=== PATIENT | female | born 1960 | race Caucasian/White ===

== ENCOUNTER → 2017-11-28 | Outpatient (CLI) | payer MEDICARE, MEDICAID | END | disposition home or self-care (01) | LOC: CVU 14:19 | PROVIDERS: ATTEND Nurse Practitioner | DX: I35.0 Nonrheumatic aortic (valve) stenosis (principal); I07.1 Rheumatic tricuspid insufficiency; I10 Essential (primary) hypertension; J44.9 Chronic obstructive pulmonary disease, unspecified; Z99.81 Dependence on supplemental oxygen; Z87.891 Personal history of nicotine dependence | CPT/HCPCS: 93306 ==

== ENCOUNTER 2020-10-21 06:54 | Emergency (ER) | payer MEDICARE, MEDICAID ==
[~2020-10-21] VITALS: Ht 160 cm; Wt 51.7 kg
--- NOTE | 2020-10-21 07:00 | NUR ---
Pt ambulatory with steady gait to room from triage
[2020-10-21] MEDS ORDERED: PLEASE ENTER ALLERGIES MC SCH (07:30)
[2020-10-21] MEDS ORDERED: LORazepam 2 MG/ML, 1ML IVPush ONE (07:30)
[2020-10-21] MEDS ORDERED: SODIUM CHLORIDE 0.9% 1,000ML IVBOLUS ONE (07:30)
[2020-10-21] MEDS ORDERED: ALBUTEROL/IPRATROPIUM 2.5MG/0.5MG, 3 ML NPPB ONE (07:30)
[2020-10-21] MEDS ORDERED: SODIUM CHLORIDE FLUSH 10ML SYR IVF ONE (07:30)
[2020-10-21] MEDS ORDERED: LORazepam 2 MG/ML, 1ML ONE (07:33)
[2020-10-21 07:44] LABS: BASOPHILS % (AUTO) 0 % (0-1); EOSINOPHILS % (AUTO) 0 % (1-7); LYMPHOCYTES % (AUTO) 8 % (22-44); MEAN CORPUSCULAR HGB CONC 32.8 g/dL (32.4-35.8); MEAN PLATELET VOLUME 8.8 fL (7.4-10.4); MONOCYTES % (AUTO) 4 % (2-9); NEUTROPHILS % (AUTO) 87 % (42-75); PLATELET COUNT 282 x10^3/uL (130-400); RED CELL DISTRIBUTION WIDTH 14.4 % (9.6-15.2)
[2020-10-21 07:45] LABS: MD NO
--- NOTE | 2020-10-21 07:47 | NUR ---
PRECEPTOR RN NOTE: PT ARRIVES VIA AMBULANCE, REPORT TAKEN FROM EMS. PT PRESENTS TO ED WITH C/O SOB ONSET LAST NIGHT AFTER METH USE. PT HAS HX COPD WITH BASELINE OXYGEN USE AT 3-4L/MIN. PT HAS OCCAISIONAL COUGH, STATES THIS IS BASELINE, DENIES FEVER, DENIES INFECTIOUS CONTACTS/COVID EXPOSURE. PT REPORTS OCCIAIONAL STERNAL CHEST PAIN INTERMITTENTLY X 2 WEEKS, DENIES AT THIS TIME. PT IS A&O, RESPS EVEN AND MILDLY LABORED. NO RETRACTIONS NOTED. PT ABLE TO SPEAK IN FULL SENTENCES WITHOUT DIFFICULTY. ALL MONITORS IN PLACE, PT IS SINUS TACH RATE 110-120S WITH NO ECTOPY. DUONEB AND ALBUTEROL ADMIN PRIOR TO ARRIVAL BY EMS. PT SEEN AND EXAMINED BY EDMD, PER RN TO HOLD NEB TX AT THIS TIME D/T TACHCARDIA. PT MEDICATED PER EMAR, TOLERATED WELL. BED LOCKED, IN LOWEST POSITION, CALL LIGHT IN REACH. AWAITING CXR AND LAB RESULTS AT THIS TIME.
--- NOTE | 2020-10-21 07:50 | NUR ---
late entry: report given to JANY Burns who is assuming care.
[2020-10-21 07:54] LABS: ALBUMIN 3.6 g/dL (3.4-5.0); ANION GAP 7 mmol/L (5-15); CALCIUM 9.2 mg/dL (8.5-10.1); CHLORIDE 101 mmol/L (98-107); CREATININE 0.63 mg/dL (0.55-1.02)
[2020-10-21 07:58] LABS: TROPONIN I < 0.015 ng/mL (0.000-0.045)
[2020-10-21 08:35] VITALS: BP 95/57
--- NOTE | 2020-10-21 08:55 | NUR ---
PATIENT RESTING IN GURNEY, EYES CLOSED, RESP EVEN AND UNLABORED, VSS, CALL LIGHT WITHIN REACH. WAITING FOR DISCHARGE PAPERWORK.
--- NOTE | 2020-10-21 09:32 | NUR ---
Patient given discharge instructions and prescripton and they have confirmed that they understand the instructions. Patient calling [facility] for ride home. Patient stable, connected to her home O2 at 3 LPM NC.
== END 2020-10-21 09:33 | disposition home or self-care (01) ==
LOC: ED 09:27
DX: J96.11 Chronic respiratory failure with hypoxia (principal); J44.1 Chronic obstructive pulmonary disease with (acute) exacerbation; F15.10 Other stimulant abuse, uncomplicated; R00.0 Tachycardia, unspecified
CPT/HCPCS: 36415; 71045; 80048; 82040; 84484; 85025; 93005; 96361; 96374; 99285; J2060; J7030; J7512

== ENCOUNTER 2020-10-23 16:26 | Emergency (ER) | payer MEDICARE, MEDICAID ==
[~2020-10-23] VITALS: Ht 160 cm; Wt 53.3 kg
[2020-10-23 17:43] VITALS: BP 138/82
== END 2020-10-23 18:38 | disposition home or self-care (01) ==
LOC: ED 18:05
DX: J44.1 Chronic obstructive pulmonary disease with (acute) exacerbation (principal); F15.10 Other stimulant abuse, uncomplicated; R00.0 Tachycardia, unspecified; Z72.9 Problem related to lifestyle, unspecified
CPT/HCPCS: 93005; 99283

== ENCOUNTER 2020-12-08 07:57 | Emergency (ER) | payer MEDICARE, MEDICAID ==
[~2020-12-08] VITALS: Ht 160 cm; Wt 55.0 kg
--- NOTE | 2020-12-08 08:19 | NUR ---
troy, report taken from ems. pt arrives with c/o sob onset last night, room air sat 76% bell captain per ems. albuterol given bell captain, fsbs 156 bell captain. pt states she smoked meth last night. pt is a&o, resps even and unlabored, able to speak in full sentences without difficulty. pt wears oxygen at 2L/min at baseline, arrives with oxygen at 5L/min. ekg taken on arrival by edt. pt denies chest pain. all monitors in place. warm blanket provided. pt seen and examined by edpa, awaiting cxr and repeat neb tx.
[2020-12-08] MEDS ORDERED: DEXAMETHASONE 4 MG TABLET PO ONE (08:30)
[2020-12-08] MEDS ORDERED: ALBUTEROL SULFATE 2.5 MG/3 ML NPPB ONE (08:30)
[2020-12-08] MEDS ORDERED: DEXAMETHASONE 4 MG TABLET ONE (08:59)
[2020-12-08] MEDS ORDERED: ALBUTEROL SULFATE 2.5 MG/3 ML ONE (08:59)
--- NOTE | 2020-12-08 09:10 | NUR ---
pt medicated per emar, tolerated well. neb tx in prog.
[2020-12-08 10:10] VITALS: BP 101/62
== END 2020-12-08 10:15 | disposition home or self-care (01) ==
LOC: ED 08:05
DX: J44.1 Chronic obstructive pulmonary disease with (acute) exacerbation (principal); F15.10 Other stimulant abuse, uncomplicated; R06.02 Shortness of breath; R00.0 Tachycardia, unspecified; Z87.891 Personal history of nicotine dependence
CPT/HCPCS: 71045; 93005; 94640; 99283; J7613

== ENCOUNTER 2020-12-13 22:15 | Emergency (ER) | payer MEDICARE, MEDICAID ==
[~2020-12-13] VITALS: Ht 160 cm; Wt 50.0 kg
--- NOTE | 2020-12-13 23:03 | NUR ---
pt brought into ER via ambulance for COPD exacerbation, pt states she has a history of COPD and emphysema, pt also states she smoked some meth tonight, pt usually on 4-6 lpm at home, pt currently on 4 lpm with O2 saturation of 98%, all needs in reach, ekg monitor on, O2 sensor on as well, NAD
[2020-12-14 00:52] VITALS: BP 116/78
== END 2020-12-14 00:58 | disposition home or self-care (01) ==
LOC: ED 22:51
DX: F15.10 Other stimulant abuse, uncomplicated (principal); F41.9 Anxiety disorder, unspecified; F17.200 Nicotine dependence, unspecified, uncomplicated; J43.9 Emphysema, unspecified
CPT/HCPCS: 93005; 99283

== ENCOUNTER 2021-02-19 06:19 | Inpatient (IN) | payer MEDICARE, MEDICAID ==
[~2021-02-19] VITALS: Ht 160 cm; Wt 52.1 kg
[2021-02-19 07:36] LABS: BASOPHILS % (AUTO) 0 % (0-1); EOSINOPHILS % (AUTO) 0 % (1-7); LYMPHOCYTES % (AUTO) 7 % (22-44); MEAN CORPUSCULAR HEMOGLOBIN 28.2 pg (27.0-34.8); MEAN CORPUSCULAR HGB CONC 32.7 g/dL (32.4-35.8); MEAN PLATELET VOLUME 8.5 fL (7.4-10.4); MONOCYTES % (AUTO) 9 % (2-9); NEUTROPHILS % (AUTO) 84 % (42-75); PLATELET COUNT 266 x10^3/uL (130-400); RED BLOOD COUNT 3.93 x10^6/uL (3.82-5.3); RED CELL DISTRIBUTION WIDTH 13.7 % (9.6-15.2)
--- NOTE | 2021-02-19 07:36 | NUR ---
[employer] [employer]: PT TO ROOM FROM LOBBY VIA WHEELCHAIR
[2021-02-19 07:45] LABS: ALANINE AMINOTRANSFERASE 15 U/L (12-78); ALBUMIN 3.7 g/dL (3.4-5.0); ANION GAP 7 mmol/L (5-15); CALCIUM 9.6 mg/dL (8.5-10.1); CHLORIDE 98 mmol/L (98-107); CREATININE 0.77 mg/dL (0.55-1.02)
[2021-02-19 07:47] LABS: ALKALINE PHOSPHATASE 108 U/L (45-117); BILIRUBIN,TOTAL 0.6 mg/dL (0.2-1.0); TOTAL PROTEIN 8.3 g/dL (6.4-8.2)
[2021-02-19] MEDS ORDERED: ALBUTEROL/IPRATROPIUM 2.5MG/0.5MG, 3 ML ONE (08:18)
[2021-02-19] MEDS ORDERED: SODIUM CHLORIDE FLUSH 10ML SYR IVF ONE (08:30)
[2021-02-19] MEDS ORDERED: ALBUTEROL/IPRATROPIUM 2.5MG/0.5MG, 3 ML NPPB ONE (08:30)
[2021-02-19 08:34] LABS: TROPONIN I 0.342 ng/mL (0.000-0.045)
--- NOTE | 2021-02-19 08:47 | NUR ---
BIB FIRE FOR INCREASED SOB X COUPLE OF DAYS. HX COPD, "VINH BEEN UP FOR A COUPLE DAYS". WEARS 4-5 L NC O2 DAILY BASELINE. RECENT METH USE IN LAST FEW HOURS. PT IN BED IN GOWN WITH CONT SPO2, BP Q 30, SIDERAILS UP X2, CALL LIGHT IN REACH. WENT OVER PKLAN OF CARE FROM ORDER LIST, AGREES TO PLAN.
[2021-02-19] MEDS ORDERED: ASPIRIN 81 MG TABLET CHEW ONE (08:56)
[2021-02-19] MEDS ORDERED: ASPIRIN 81 MG TABLET CHEW PO ONE (09:00)
[2021-02-19] MEDS ORDERED: ONDANSETRON ODT 4 MG PO PRN (09:00)
[2021-02-19] MEDS ORDERED: morphine SULFATE 10 MG/ML, 1ML IVPush PRN (09:00)
[2021-02-19] MEDS ORDERED: ONDANSETRON 2MG/ML, 2ML IVPush PRN (09:00)
[2021-02-19] MEDS ORDERED: BP MED (09:10)
[2021-02-19] MEDS ORDERED: DIVA500T2 PO (09:10)
[2021-02-19] MEDS ORDERED: QUET50TA5 PO (09:10)
[2021-02-19] MEDS ORDERED: ALBU0.63 NEB (09:11)
--- NOTE | 2021-02-19 09:16 | NUR ---
PT IN ISO FOR COVID R/O
[2021-02-19 10:00] LABS: TROPONIN I 0.299 ng/mL (0.000-0.045)
[2021-02-19] MEDS: SODIUM CHLORIDE 0.9% 1,000 ML IV SCH (10:11)
--- NOTE | 2021-02-19 11:30 | NUR ---
REPORT FROM WLILIS CARMICHAEL.
[2021-02-19] MEDS ORDERED: HEPARIN 5,000 UNITS/ML, 1ML ONE (11:33)
[2021-02-19] MEDS: HEPARIN 5,000 UNITS/ML, 1ML SQ SCH ×2 (11:34→20:05)
--- NOTE | 2021-02-19 11:44 | NUR ---
REPORT TO IESHA CARMICHAEL.
[2021-02-19 12:51] VITALS: BP 163/97
[2021-02-19 12:57] VITALS: BP 163/97
[2021-02-19 17:01] VITALS: BP 166/85
[2021-02-19] MEDS: ARIPIPRAZOLE 5 MG TABLET PO SCH (18:48)
[2021-02-19] MEDS: ATORVASTATIN 40 MG TABLET PO SCH (20:06)
[2021-02-19] MEDS: DIVALPROEX 500 MG TABLET.DR PO SCH (20:06)
[2021-02-19 20:07] VITALS: BP 118/75
[2021-02-19] MEDS: MELATONIN 5 MG TABLET PO PRN (20:38)
[2021-02-19] MEDS ORDERED: ALBUTEROL-IPRATROPIUM MDI INH INH SCH (21:00)
[2021-02-19] MEDS ORDERED: BUDESONIDE 0.5 MG/2 ML INHA NPPB SCH (21:00)
[2021-02-19] MEDS ORDERED: ALBUTEROL/IPRATROPIUM 2.5MG/0.5MG, 3 ML NPPB SCH (21:00)
[2021-02-19] MEDS ORDERED: ARIPIPRAZOLE 5 MG TABLET PO SCH (21:00)
[2021-02-20 01:28] VITALS: BP 106/64
[2021-02-20] MEDS: ACETAMINOPHEN 325 MG TABLET PO PRN ×3 (02:47→21:49)
[2021-02-20 05:21] LABS: BASOPHILS % (AUTO) 0 % (0-1); EOSINOPHILS % (AUTO) 0 % (1-7); LYMPHOCYTES % (AUTO) 21 % (22-44); MEAN CORPUSCULAR HEMOGLOBIN 29.1 pg (27.0-34.8); MEAN CORPUSCULAR HGB CONC 33.4 g/dL (32.4-35.8); MEAN PLATELET VOLUME 8.6 fL (7.4-10.4); MONOCYTES % (AUTO) 12 % (2-9); NEUTROPHILS % (AUTO) 67 % (42-75); PLATELET COUNT 201 x10^3/uL (130-400); RED BLOOD COUNT 3.57 x10^6/uL (3.82-5.3); RED CELL DISTRIBUTION WIDTH 13.5 % (9.6-15.2)
[2021-02-20 05:30] LABS: ANION GAP 6 mmol/L (5-15); CALCIUM 9.3 mg/dL (8.5-10.1); CHLORIDE 102 mmol/L (98-107); CREATININE 0.59 mg/dL (0.55-1.02)
[2021-02-20] MEDS: ASPIRIN 325 MG TABLET PO SCH (05:38)
[2021-02-20] MEDS: DIVALPROEX 500 MG TABLET.DR PO SCH ×2 (08:18→20:05)
[2021-02-20] MEDS: ARIPIPRAZOLE 5 MG TABLET PO SCH (08:18)
[2021-02-20] MEDS: HEPARIN 5,000 UNITS/ML, 1ML SQ SCH ×2 (08:19→20:06)
[2021-02-20 08:36] VITALS: BP 122/86
[2021-02-20] MEDS ORDERED: ALBUTEROL/IPRATROPIUM 2.5MG/0.5MG, 3 ML NPPB SCH (09:00)
[2021-02-20] MEDS ORDERED: FLUTICASONE/VILANTEROL 200-25MCG/INH INH SCH (09:00)
[2021-02-20] MEDS: FLUTICASONE/VILANTEROL 200-25MCG/INH INH SCH (09:00)
[2021-02-20] MEDS ORDERED: REGADENOSON 0.4 MG/5 ML SYRINGE ONE (09:16)
[2021-02-20 09:25] LABS: MICROSCOPIC INDICATED
[2021-02-20] MEDS: ALBUTEROL/IPRATROPIUM 2.5MG/0.5MG, 3 ML NPPB SCH ×2 (09:30→20:35)
[2021-02-20] MEDS: SODIUM CHLORIDE 0.9% 1,000 ML IV SCH (10:22)
[2021-02-20 13:56] VITALS: BP 100/60
[2021-02-20] MEDS: AZITHROMYCIN 500 MG TABLET PO SCH (17:32)
[2021-02-20] MEDS: ATORVASTATIN 40 MG TABLET PO SCH (20:05)
[2021-02-20 20:06] VITALS: BP 115/76
[2021-02-20] MEDS: MELATONIN 5 MG TABLET PO PRN (20:06)
[2021-02-21 02:00] VITALS: BP 121/77
[2021-02-21] MEDS: ASPIRIN 325 MG TABLET PO SCH (05:35)
[2021-02-21 05:47] LABS: BASOPHILS % (AUTO) 1 % (0-1); EOSINOPHILS % (AUTO) 3 % (1-7); LYMPHOCYTES % (AUTO) 38 % (22-44); MEAN CORPUSCULAR HEMOGLOBIN 28.3 pg (27.0-34.8); MEAN CORPUSCULAR HGB CONC 32.5 g/dL (32.4-35.8); MEAN PLATELET VOLUME 9.5 fL (7.4-10.4); MONOCYTES % (AUTO) 8 % (2-9); NEUTROPHILS % (AUTO) 51 % (42-75); PLATELET COUNT 180 x10^3/uL (130-400); RED BLOOD COUNT 3.46 x10^6/uL (3.82-5.3); RED CELL DISTRIBUTION WIDTH 13.5 % (9.6-15.2)
[2021-02-21 06:01] LABS: ALBUMIN 2.7 g/dL (3.4-5.0); ANION GAP 4 mmol/L (5-15); CALCIUM 8.9 mg/dL (8.5-10.1); CHLORIDE 103 mmol/L (98-107)
[2021-02-21 06:04] LABS: ALANINE AMINOTRANSFERASE 13 U/L (12-78); ALKALINE PHOSPHATASE 75 U/L (45-117); BILIRUBIN,TOTAL 0.2 mg/dL (0.2-1.0); CREATININE 0.46 mg/dL (0.55-1.02); TOTAL PROTEIN 6.1 g/dL (6.4-8.2)
[2021-02-21] MEDS: ALBUTEROL/IPRATROPIUM 2.5MG/0.5MG, 3 ML NPPB SCH ×2 (07:11→20:40)
[2021-02-21 07:30] VITALS: BP 117/79
[2021-02-21] MEDS ORDERED: methylPREDNISolone SOD SUCC 125 MG/2 ML IVPush ONE (08:30)
[2021-02-21] MEDS: FLUTICASONE/VILANTEROL 200-25MCG/INH INH SCH (09:00)
[2021-02-21] MEDS: ARIPIPRAZOLE 5 MG TABLET PO SCH (09:02)
[2021-02-21] MEDS: AZITHROMYCIN 500 MG TABLET PO SCH (09:03)
[2021-02-21] MEDS: HEPARIN 5,000 UNITS/ML, 1ML SQ SCH ×2 (09:03→19:57)
[2021-02-21] MEDS: DIVALPROEX 500 MG TABLET.DR PO SCH ×2 (09:03→19:57)
[2021-02-21] MEDS ORDERED: ALBUTEROL SULFATE 2.5 MG/3 ML NPPB PRN (10:30)
[2021-02-21 12:41] VITALS: BP 116/79
[2021-02-21 19:06] VITALS: BP 117/78
[2021-02-21] MEDS: MELATONIN 5 MG TABLET PO PRN (19:57)
[2021-02-21] MEDS: ATORVASTATIN 40 MG TABLET PO SCH (19:57)
[2021-02-22 01:03] VITALS: BP 122/68
[2021-02-22] MEDS: ASPIRIN 325 MG TABLET PO SCH (05:45)
[2021-02-22 07:47] VITALS: BP 117/76
[2021-02-22] MEDS: ALBUTEROL/IPRATROPIUM 2.5MG/0.5MG, 3 ML NPPB SCH (08:03)
[2021-02-22] MEDS: ARIPIPRAZOLE 5 MG TABLET PO SCH (08:26)
[2021-02-22] MEDS: AZITHROMYCIN 500 MG TABLET PO SCH (08:27)
[2021-02-22] MEDS: DIVALPROEX 500 MG TABLET.DR PO SCH (08:27)
[2021-02-22] MEDS: FLUTICASONE/VILANTEROL 200-25MCG/INH INH SCH (08:28)
[2021-02-22] MEDS: HEPARIN 5,000 UNITS/ML, 1ML SQ SCH (08:28)
[2021-02-22 12:32] VITALS: BP 122/75
[2021-02-22] MEDS ORDERED: FLUT1BLS INH (12:37)
[2021-02-22] MEDS ORDERED: AZIT500T10 PO (12:37)
[2021-02-22] MEDS ORDERED: ATOR40TA78 PO (12:37)
[2021-02-22] MEDS ORDERED: ARIP5TAB13 PO (12:37)
[2021-02-22] MEDS ORDERED: PRED20TA PO (12:37)
[2021-02-22] MEDS ORDERED: ALBUTEROL HFA 90 MCG/SPRAY INH PRN (16:00)
== END 2021-02-22 16:23 | disposition psychiatric hospital, planned readmission (93) | DRG 189 ==
LOC: ED 08:08 → EDIP 10:13 → 5SO 12:52
PROVIDERS: ADMIT Internal Medicine; ATTEND Hospitalist
DX: J96.01 Acute respiratory failure with hypoxia (principal); I21.A1 Myocardial infarction type 2; E87.1 Hypo-osmolality and hyponatremia; R45.851 Suicidal ideations; F31.64 Bipolar disorder, current episode mixed, severe, with psychotic features; E78.5 Hyperlipidemia, unspecified; F15.10 Other stimulant abuse, uncomplicated; G47.30 Sleep apnea, unspecified; I50.9 Heart failure, unspecified; I11.0 Hypertensive heart disease with heart failure; J43.9 Emphysema, unspecified; Z20.822 Contact with and (suspected) exposure to COVID-19; Z83.3 Family history of diabetes mellitus; Z82.3 Family history of stroke; Z79.899 Other long term (current) drug therapy; Z82.5 Family history of asthma and other chronic lower respiratory diseases; Z87.891 Personal history of nicotine dependence; Z99.81 Dependence on supplemental oxygen
CPT/HCPCS: 36415; 71045; 78452; 80048; 80053; 81001; 83880; 84484; 85025; 85379; 87086; 93005; 93017; 94640; G0378; J1644; J2785; J7613; U0005; A9502; C9898; J2930; J7030; J7512; U0003

== ENCOUNTER 2021-02-22 15:59 | Inpatient (IN) | payer MEDICARE, MEDICAID ==
[~2021-02-22] VITALS: Ht 160 cm; Wt 53.9 kg
[~2021-02-22 15:59] MED LIST: ALBU0.63 NEB; ARIP5TAB13 PO; ATOR40TA78 PO; AZIT500T10 PO; BP MED; DIVA500T2 PO; FLUT1BLS INH; PRED20TA PO; QUET50TA5 PO
[2021-02-22] MEDS ORDERED: ONDANSETRON ODT 4 MG PO PRN (16:00)
[2021-02-22] MEDS ORDERED: POLYETHYLENE GLYCOL 17 GM PACKET PO PRN (16:00)
[2021-02-22] MEDS ORDERED: BISACODYL 10 MG SUPP PR PRN (16:00)
[2021-02-22 16:20] VITALS: BP 157/75
[2021-02-22 19:26] VITALS: BP 144/94
[2021-02-22] MEDS: ATORVASTATIN 40 MG TABLET PO SCH (20:14)
[2021-02-22 20:41] LABS: AMPHETAMINE SCREEN, URINE Negative (Negative); BARBITURATE SCREEN, URINE Negative (Negative); BENZODIAZEPINE SCREEN, URINE Negative (Negative)
[2021-02-22 20:43] LABS: CANNABINOID SCREEN, URINE Negative (Negative); COCAINE SCREEN, URINE Negative (Negative); METHADONE SCREEN, URINE Negative (Negative); OPIATE SCREEN, URINE Negative (Negative)
[2021-02-23 07:58] VITALS: BP 148/81
[2021-02-23] MEDS: ARIPIPRAZOLE 10 MG TABLET PO SCH (08:27)
[2021-02-23] MEDS: DIVALPROEX 500 MG TABLET.DR PO SCH (08:27)
[2021-02-23] MEDS ORDERED: AZITHROMYCIN 500 MG TABLET PO SCH (09:00)
[2021-02-23] MEDS ORDERED: FLUTICASONE/VILANTEROL 200-25MCG/INH INH SCH (09:00)
[2021-02-23 09:11] LABS: CHOL/HDL RATIO 1.8; FREE T4 (FREE THYROXINE) 0.95 ng/dL (0.76-1.46); LDL/HDL RATIO 0.6 (0.5-3.0)
[2021-02-23] MEDS ORDERED: ALBUTEROL SULFATE 2.5 MG/3 ML NPPB ONE (11:34)
[2021-02-23] MEDS: PHENOL THROAT SPRAY BOTTLE MM SCH ×2 (18:06→19:58)
[2021-02-23] MEDS: TIOTROPIUM BROMIDE 18 MCG/INH INH SCH (18:06)
[2021-02-23 19:14] VITALS: BP 132/85
[2021-02-23] MEDS: ATORVASTATIN 40 MG TABLET PO SCH (19:58)
[2021-02-23] MEDS: MELATONIN 5 MG TABLET PO SCH (19:58)
[2021-02-24 07:34] VITALS: BP 130/87
[2021-02-24 07:36] VITALS: BP 132/85
[2021-02-24] MEDS: AZITHROMYCIN 500 MG TABLET PO SCH (08:59)
[2021-02-24] MEDS: DIVALPROEX 500 MG TABLET.DR PO SCH (09:00)
[2021-02-24] MEDS ORDERED: BUDESONIDE 0.5 MG/2 ML INHA NPPB SCH (09:00)
[2021-02-24] MEDS: ARIPIPRAZOLE 10 MG TABLET PO SCH (09:00)
[2021-02-24] MEDS ORDERED: ALBUTEROL SULFATE 2.5 MG/3 ML NEB SCH (09:00)
[2021-02-24] MEDS: TIOTROPIUM BROMIDE 18 MCG/INH INH SCH (09:01)
[2021-02-24] MEDS: PHENOL THROAT SPRAY BOTTLE MM SCH ×2 (09:02→20:24)
[2021-02-24] MEDS ORDERED: ALBUTEROL SULFATE 2.5 MG/3 ML ONE (11:17)
[2021-02-24] MEDS: ALBUTEROL/IPRATROPIUM 2.5MG/0.5MG, 3 ML NPPB SCH ×2 (15:00→21:00)
[2021-02-24] MEDS ORDERED: BUDESONIDE 0.5 MG/2 ML INHA ONE (18:54)
[2021-02-24 19:20] VITALS: BP 131/69
[2021-02-24] MEDS: ATORVASTATIN 40 MG TABLET PO SCH (20:24)
[2021-02-24] MEDS: MELATONIN 5 MG TABLET PO SCH (20:24)
[2021-02-24] MEDS: BUDESONIDE 0.5 MG/2 ML INHA INH SCH (21:00)
[2021-02-25] MEDS: ALBUTEROL/IPRATROPIUM 2.5MG/0.5MG, 3 ML NPPB SCH ×2 (03:00→09:30)
[2021-02-25 07:25] VITALS: BP 133/80
[2021-02-25] MEDS: DIVALPROEX 500 MG TABLET.DR PO SCH (08:50)
[2021-02-25] MEDS: AZITHROMYCIN 500 MG TABLET PO SCH (08:50)
[2021-02-25] MEDS: ARIPIPRAZOLE 10 MG TABLET PO SCH (08:50)
[2021-02-25] MEDS: PHENOL THROAT SPRAY BOTTLE MM SCH ×2 (08:57→20:31)
[2021-02-25] MEDS: BUDESONIDE 0.5 MG/2 ML INHA INH SCH ×2 (09:30→20:39)
[2021-02-25] MEDS: LORazepam 0.5MG TABLET PO PRN ×2 (10:32→18:07)
[2021-02-25 11:42] VITALS: BP 107/74
[2021-02-25] MEDS ORDERED: ALBUTEROL HFA 90 MCG/SPRAY INH PRN (14:00)
[2021-02-25] MEDS: FUROSEMIDE 40 MG TABLET PO SCH (14:07)
[2021-02-25] MEDS ORDERED: ALBUTEROL/IPRATROPIUM 2.5MG/0.5MG, 3 ML ONE (14:28)
[2021-02-25] MEDS: ALBUTEROL/IPRATROPIUM 2.5MG/0.5MG, 3 ML HHN SCH ×2 (14:30→20:39)
[2021-02-25 15:07] LABS: MEAN CORPUSCULAR HEMOGLOBIN 28.3 pg (27.0-34.8); MEAN CORPUSCULAR HGB CONC 32.4 g/dL (32.4-35.8); MEAN PLATELET VOLUME 8.2 fL (7.4-10.4); PLATELET COUNT 331 x10^3/uL (130-400); RED BLOOD COUNT 4.16 x10^6/uL (3.82-5.3); RED CELL DISTRIBUTION WIDTH 13.8 % (9.6-15.2)
[2021-02-25 15:20] LABS: ALANINE AMINOTRANSFERASE 50 U/L (12-78); ALBUMIN 3.6 g/dL (3.4-5.0); ANION GAP 4 mmol/L (5-15); CALCIUM 9.3 mg/dL (8.5-10.1); CHLORIDE 97 mmol/L (98-107); CREATININE 0.78 mg/dL (0.55-1.02)
[2021-02-25 15:22] LABS: ALKALINE PHOSPHATASE 86 U/L (45-117); BILIRUBIN,TOTAL 0.2 mg/dL (0.2-1.0); TOTAL PROTEIN 8.1 g/dL (6.4-8.2)
[2021-02-25] MEDS: DIVALPROEX 250 MG TABLET.DR PO SCH ×2 (15:45→20:30)
[2021-02-25 18:00] LABS: BAND#(MANUAL) 0.25 x10^3/uL; BANDS%(MANUAL) 2 % (0-7); LYMPH#(MANUAL) 0.76 x10^3/uL (1-3.4); LYMPHS% (MANUAL) 6 % (22-44); MONOS#(MANUAL) 0.25 x10^3/uL (0.3-2.7); MONOS% (MANUAL) 2 % (2-9); MYELOCYTES# (MANUAL) 0.13 x10^3/uL (0-0); MYELOCYTES% (MANUAL) 1 % (0-0); SEG#(MANUAL) 11.21 x10^3/uL (1.8-6.8); SEGS% (MANUAL) 89 % (42-75)
[2021-02-25 18:02] LABS: <PLATELET ESTIMATE> ADEQUATE; <PLT MORPHOLOGY> NORMAL PLT MORPH; ANISOCYTOSIS 1+; POLYCHROMASIA 1+
[2021-02-25 18:04] VITALS: BP 117/81
[2021-02-25] MEDS: ACETAMINOPHEN 325 MG TABLET PO PRN (18:10)
[2021-02-25 19:35] VITALS: BP 120/80
[2021-02-25] MEDS: MELATONIN 5 MG TABLET PO SCH (20:30)
[2021-02-25] MEDS: ATORVASTATIN 40 MG TABLET PO SCH (20:30)
[2021-02-26 07:43] VITALS: BP 131/83
[2021-02-26] MEDS: ARIPIPRAZOLE 10 MG TABLET PO SCH (08:54)
[2021-02-26] MEDS: AZITHROMYCIN 500 MG TABLET PO SCH (08:54)
[2021-02-26] MEDS: DIVALPROEX 250 MG TABLET.DR PO SCH ×3 (08:55→22:13)
[2021-02-26] MEDS: FUROSEMIDE 40 MG TABLET PO SCH (08:55)
[2021-02-26] MEDS: BUDESONIDE 0.5 MG/2 ML INHA INH SCH ×3 (09:00→21:00)
[2021-02-26] MEDS: PHENOL THROAT SPRAY BOTTLE MM SCH ×2 (09:00→22:18)
[2021-02-26] MEDS: LORazepam 0.5MG TABLET PO PRN ×2 (09:03→15:57)
[2021-02-26 13:00] VITALS: BP 135/76
[2021-02-26 19:23] VITALS: BP 131/75
[2021-02-26] MEDS: MELATONIN 5 MG TABLET PO SCH (22:13)
[2021-02-26] MEDS: ATORVASTATIN 40 MG TABLET PO SCH (22:13)
[2021-02-27] MEDS ORDERED: ALBUTEROL SULFATE 2.5 MG/3 ML ONE (07:58)
[2021-02-27 08:02] VITALS: BP 126/79
[2021-02-27] MEDS: BUDESONIDE 0.5 MG/2 ML INHA INH SCH ×2 (08:05→21:00)
[2021-02-27] MEDS: DIVALPROEX 250 MG TABLET.DR PO SCH ×3 (08:10→19:47)
[2021-02-27] MEDS: FUROSEMIDE 40 MG TABLET PO SCH (08:10)
[2021-02-27] MEDS: ARIPIPRAZOLE 10 MG TABLET PO SCH (08:11)
[2021-02-27] MEDS: PHENOL THROAT SPRAY BOTTLE MM SCH ×2 (09:00→19:43)
[2021-02-27] MEDS ORDERED: ALBUTEROL SULFATE 2.5 MG/3 ML NPPB ONE (09:00)
[2021-02-27] MEDS: DOCUSATE 100 MG CAPSULE PO PRN (12:51)
[2021-02-27 19:32] VITALS: BP_SYST 139; BP_SYST 146; BP_DIAS 80; BP_DIAS 93
[2021-02-27] MEDS: MELATONIN 5 MG TABLET PO SCH (19:47)
[2021-02-27] MEDS: LORazepam 0.5MG TABLET PO PRN (19:47)
[2021-02-27] MEDS: ATORVASTATIN 40 MG TABLET PO SCH (19:47)
[2021-02-28 07:59] VITALS: BP 88/66
[2021-02-28] MEDS: LORazepam 0.5MG TABLET PO PRN ×2 (08:03→20:43)
[2021-02-28] MEDS: FUROSEMIDE 40 MG TABLET PO SCH (08:03)
[2021-02-28] MEDS: DOCUSATE 100 MG CAPSULE PO PRN (08:03)
[2021-02-28] MEDS: DIVALPROEX 250 MG TABLET.DR PO SCH ×3 (08:03→20:43)
[2021-02-28] MEDS: ARIPIPRAZOLE 10 MG TABLET PO SCH (08:04)
[2021-02-28] MEDS: PHENOL THROAT SPRAY BOTTLE MM SCH ×2 (08:56→20:56)
[2021-02-28] MEDS: BUDESONIDE 0.5 MG/2 ML INHA INH SCH ×2 (09:00→20:08)
[2021-02-28 19:38] VITALS: BP 137/82
[2021-02-28] MEDS: ATORVASTATIN 40 MG TABLET PO SCH (20:43)
[2021-02-28] MEDS: MELATONIN 5 MG TABLET PO SCH (20:43)
[2021-03-01 07:29] VITALS: BP 146/75
[2021-03-01] MEDS: ARIPIPRAZOLE 10 MG TABLET PO SCH (08:44)
[2021-03-01] MEDS: DIVALPROEX 250 MG TABLET.DR PO SCH ×3 (08:44→20:27)
[2021-03-01] MEDS: LORazepam 0.5MG TABLET PO PRN (08:45)
[2021-03-01] MEDS: FUROSEMIDE 40 MG TABLET PO SCH (08:45)
[2021-03-01] MEDS: PHENOL THROAT SPRAY BOTTLE MM SCH ×2 (09:00→20:27)
[2021-03-01] MEDS: BUDESONIDE 0.5 MG/2 ML INHA INH SCH ×2 (11:40→21:00)
[2021-03-01] MEDS ORDERED: ALBUTEROL SULFATE 2.5 MG/3 ML NPPB PRN (12:00)
[2021-03-01] MEDS ORDERED: ALBUTEROL INH PRN (12:00)
[2021-03-01 19:35] VITALS: BP 127/84
[2021-03-01] MEDS: ATORVASTATIN 40 MG TABLET PO SCH (20:27)
[2021-03-01] MEDS: MELATONIN 5 MG TABLET PO SCH (20:27)
[2021-03-02 07:30] VITALS: BP 131/76
[2021-03-02] MEDS: ARIPIPRAZOLE 10 MG TABLET PO SCH (08:08)
[2021-03-02] MEDS: LORazepam 0.5MG TABLET PO PRN ×2 (08:08→14:01)
[2021-03-02] MEDS: DIVALPROEX 250 MG TABLET.DR PO SCH ×3 (08:08→20:34)
[2021-03-02] MEDS: FUROSEMIDE 40 MG TABLET PO SCH (08:08)
[2021-03-02] MEDS: PHENOL THROAT SPRAY BOTTLE MM SCH (09:00)
[2021-03-02] MEDS ORDERED: PHENOL THROAT SPRAY BOTTLE MM PRN (09:30)
[2021-03-02] MEDS: BUDESONIDE 0.5 MG/2 ML INHA INH SCH ×2 (10:10→20:02)
[2021-03-02] MEDS: ALBUTEROL HFA 90 MCG/SPRAY INH PRN ×2 (10:20→15:11)
[2021-03-02 19:26] VITALS: BP 137/74
[2021-03-02] MEDS: ATORVASTATIN 40 MG TABLET PO SCH (20:34)
[2021-03-02] MEDS: MELATONIN 5 MG TABLET PO SCH (20:34)
[2021-03-03 07:25] VITALS: BP 142/76
[2021-03-03] MEDS: ARIPIPRAZOLE 10 MG TABLET PO SCH (07:34)
[2021-03-03] MEDS: DIVALPROEX 250 MG TABLET.DR PO SCH ×3 (07:34→20:39)
[2021-03-03] MEDS: LORazepam 0.5MG TABLET PO PRN ×2 (07:34→12:56)
[2021-03-03] MEDS: FUROSEMIDE 40 MG TABLET PO SCH (07:35)
[2021-03-03] MEDS: ALBUTEROL HFA 90 MCG/SPRAY INH PRN ×2 (07:35→15:57)
[2021-03-03] MEDS: FLUTICASONE FUROATE 200MCG/INH INH SCH (08:11)
[2021-03-03 15:14] LABS: MEAN CORPUSCULAR HEMOGLOBIN 28.7 pg (27.0-34.8); MEAN CORPUSCULAR HGB CONC 32.4 g/dL (32.4-35.8); MEAN PLATELET VOLUME 8.5 fL (7.4-10.4); PLATELET COUNT 344 x10^3/uL (130-400); RED BLOOD COUNT 4.23 x10^6/uL (3.82-5.3); RED CELL DISTRIBUTION WIDTH 15.1 % (9.6-15.2)
[2021-03-03 15:43] LABS: <PLATELET ESTIMATE> ADEQUATE; <PLT MORPHOLOGY> NORMAL PLT MORPH; ANISOCYTOSIS 1+; LYMPH#(MANUAL) 0.24 x10^3/uL (1-3.4); LYMPHS% (MANUAL) 1 % (22-44); MICROCYTOSIS 1+; MONOS#(MANUAL) 1.18 x10^3/uL (0.3-2.7); MONOS% (MANUAL) 5 % (2-9); SEG#(MANUAL) 22.18 x10^3/uL (1.8-6.8); SEGS% (MANUAL) 94 % (42-75)
[2021-03-03] MEDS ORDERED: AZITHROMYCIN 250 MG TABLET ONE (16:56)
[2021-03-03] MEDS: AZITHROMYCIN 500 MG TABLET PO SCH (16:59)
[2021-03-03 19:30] VITALS: BP 123/82
[2021-03-03] MEDS: MELATONIN 5 MG TABLET PO SCH (20:39)
[2021-03-03] MEDS: ATORVASTATIN 40 MG TABLET PO SCH (20:39)
[2021-03-04 07:43] VITALS: BP 116/75
[2021-03-04] MEDS: ALBUTEROL HFA 90 MCG/SPRAY INH PRN (09:12)
[2021-03-04] MEDS: AZITHROMYCIN 500 MG TABLET PO SCH (09:21)
[2021-03-04] MEDS: FUROSEMIDE 40 MG TABLET PO SCH (09:22)
[2021-03-04] MEDS: DIVALPROEX 250 MG TABLET.DR PO SCH ×3 (09:22→20:30)
[2021-03-04] MEDS: ARIPIPRAZOLE 10 MG TABLET PO SCH (09:23)
[2021-03-04] MEDS: FLUTICASONE FUROATE 200MCG/INH INH SCH (10:03)
[2021-03-04] MEDS: LORazepam 0.5MG TABLET PO PRN (10:35)
[2021-03-04] MEDS ORDERED: ALBUTEROL/IPRATROPIUM 2.5MG/0.5MG, 3 ML HHN SCH (15:30)
[2021-03-04] MEDS: ALBUTEROL-IPRATROPIUM MDI INH INH SCH ×2 (16:29→21:34)
[2021-03-04] MEDS: ALBUTEROL HFA 90 MCG/SPRAY INH SCH ×2 (16:30→20:30)
[2021-03-04 19:20] VITALS: BP 144/93
[2021-03-04] MEDS: ATORVASTATIN 40 MG TABLET PO SCH (20:30)
[2021-03-04] MEDS: MELATONIN 5 MG TABLET PO SCH (20:30)
[2021-03-05] MEDS: ALBUTEROL-IPRATROPIUM MDI INH INH SCH ×4 (02:43→21:36)
[2021-03-05] MEDS: LORazepam 0.5MG TABLET PO PRN ×2 (03:46→12:46)
[2021-03-05] MEDS: ALBUTEROL HFA 90 MCG/SPRAY INH SCH ×4 (06:17→20:24)
[2021-03-05] MEDS: DIVALPROEX 250 MG TABLET.DR PO SCH ×3 (09:03→20:24)
[2021-03-05] MEDS: AZITHROMYCIN 500 MG TABLET PO SCH (09:03)
[2021-03-05] MEDS: ARIPIPRAZOLE 10 MG TABLET PO SCH (09:04)
[2021-03-05] MEDS: FUROSEMIDE 40 MG TABLET PO SCH (09:04)
[2021-03-05] MEDS: FLUTICASONE FUROATE 200MCG/INH INH SCH (09:18)
[2021-03-05 09:31] VITALS: BP 122/68
[2021-03-05 18:06] VITALS: BP 155/97
[2021-03-05 19:11] LABS: TROPONIN I < 0.015 ng/mL (0.000-0.045)
[2021-03-05 19:45] VITALS: BP 140/90
[2021-03-05] MEDS: MELATONIN 5 MG TABLET PO SCH (20:24)
[2021-03-05] MEDS: ATORVASTATIN 40 MG TABLET PO SCH (20:24)
[2021-03-06] MEDS: ALBUTEROL-IPRATROPIUM MDI INH INH SCH ×4 (03:45→21:36)
[2021-03-06] MEDS: ALBUTEROL HFA 90 MCG/SPRAY INH SCH ×4 (06:05→20:29)
[2021-03-06 06:20] LABS: MEAN CORPUSCULAR HEMOGLOBIN 28.5 pg (27.0-34.8); MEAN CORPUSCULAR HGB CONC 32.5 g/dL (32.4-35.8); MEAN PLATELET VOLUME 8.4 fL (7.4-10.4); PLATELET COUNT 300 x10^3/uL (130-400); RED BLOOD COUNT 3.72 x10^6/uL (3.82-5.3); RED CELL DISTRIBUTION WIDTH 14.7 % (9.6-15.2)
[2021-03-06 06:31] LABS: CALCIUM 9.1 mg/dL (8.5-10.1); CREATININE 0.54 mg/dL (0.55-1.02)
[2021-03-06 06:44] LABS: ANION GAP 3 mmol/L (5-15); CHLORIDE 98 mmol/L (98-107)
[2021-03-06 06:56] LABS: LYMPH#(MANUAL) 0.87 x10^3/uL (1-3.4); LYMPHS% (MANUAL) 4 % (22-44); MONOS#(MANUAL) 0.65 x10^3/uL (0.3-2.7); MONOS% (MANUAL) 3 % (2-9); SEG#(MANUAL) 20.27 x10^3/uL (1.8-6.8); SEGS% (MANUAL) 93 % (42-75)
[2021-03-06 06:57] LABS: <PLATELET ESTIMATE> ADEQUATE; <PLT MORPHOLOGY> NORMAL PLT MORPH; <RBC MORPHOLOGY> NORMAL
[2021-03-06 07:36] VITALS: BP 109/75
[2021-03-06] MEDS: DIVALPROEX 250 MG TABLET.DR PO SCH ×3 (07:53→20:29)
[2021-03-06] MEDS: FUROSEMIDE 40 MG TABLET PO SCH (07:53)
[2021-03-06] MEDS: ARIPIPRAZOLE 10 MG TABLET PO SCH (07:53)
[2021-03-06] MEDS: LORazepam 0.5MG TABLET PO PRN ×2 (07:53→15:43)
[2021-03-06] MEDS: AZITHROMYCIN 500 MG TABLET PO SCH (07:53)
[2021-03-06] MEDS: FLUTICASONE FUROATE 200MCG/INH INH SCH (08:46)
[2021-03-06] MEDS ORDERED: ARIP10TA33 PO (18:27)
[2021-03-06] MEDS ORDERED: FURO40TA6 PO (18:27)
[2021-03-06] MEDS ORDERED: MELA5TAB14 PO (18:27)
[2021-03-06] MEDS ORDERED: DIVA-59 PO (18:27)
[2021-03-06] MEDS: ACETAMINOPHEN 325 MG TABLET PO PRN (19:22)
[2021-03-06 19:26] VITALS: BP 140/83
[2021-03-06] MEDS: MELATONIN 5 MG TABLET PO SCH (20:29)
[2021-03-06] MEDS: ATORVASTATIN 40 MG TABLET PO SCH (20:29)
[2021-03-06] MEDS: PIPERACILLIN/TAZO 3.375 GM in DEXTROSE 5% 50 ML IV SCH (22:01)
[2021-03-06] MEDS: methylPREDNISolone SOD SUCC 40 MG/ML IVPush SCH (22:51)
[2021-03-07] MEDS: LORazepam 0.5MG TABLET PO PRN ×2 (03:07→09:01)
[2021-03-07] MEDS: ALBUTEROL-IPRATROPIUM MDI INH INH SCH ×4 (03:47→21:29)
[2021-03-07] MEDS: PIPERACILLIN/TAZO 3.375 GM in DEXTROSE 5% 50 ML IV SCH ×4 (04:07→21:54)
[2021-03-07] MEDS: methylPREDNISolone SOD SUCC 40 MG/ML IVPush SCH ×3 (05:26→19:36)
[2021-03-07] MEDS: ALBUTEROL HFA 90 MCG/SPRAY INH SCH ×4 (05:59→20:24)
[2021-03-07 06:49] LABS: MEAN CORPUSCULAR HEMOGLOBIN 28.4 pg (27.0-34.8); MEAN CORPUSCULAR HGB CONC 32.3 g/dL (32.4-35.8); MEAN PLATELET VOLUME 8.4 fL (7.4-10.4); PLATELET COUNT 291 x10^3/uL (130-400); RED BLOOD COUNT 3.98 x10^6/uL (3.82-5.3); RED CELL DISTRIBUTION WIDTH 14.9 % (9.6-15.2)
[2021-03-07 06:54] LABS: CREATININE 0.54 mg/dL (0.55-1.02)
[2021-03-07 07:04] LABS: CHLORIDE 96 mmol/L (98-107)
[2021-03-07 07:10] LABS: ANION GAP 2 mmol/L (5-15)
[2021-03-07 07:42] LABS: BAND#(MANUAL) 0.46 x10^3/uL; BANDS%(MANUAL) 2 % (0-7); LYMPH#(MANUAL) 1.62 x10^3/uL (1-3.4); LYMPHS% (MANUAL) 7 % (22-44); MONOS% (MANUAL) 3 % (2-9); SEG#(MANUAL) 20.42 x10^3/uL (1.8-6.8); SEGS% (MANUAL) 88 % (42-75)
[2021-03-07 07:43] LABS: <PLATELET ESTIMATE> ADEQUATE; <PLT MORPHOLOGY> NORMAL PLT MORPH; <RBC MORPHOLOGY> NORMAL
[2021-03-07 07:48] VITALS: BP 129/83
[2021-03-07] MEDS: FLUTICASONE FUROATE 200MCG/INH INH SCH (08:46)
[2021-03-07] MEDS: FUROSEMIDE 40 MG TABLET PO SCH (09:00)
[2021-03-07] MEDS: ARIPIPRAZOLE 10 MG TABLET PO SCH (09:00)
[2021-03-07] MEDS: DIVALPROEX 250 MG TABLET.DR PO SCH ×3 (09:00→20:24)
[2021-03-07 11:38] LABS: MICROSCOPIC NOT IND
[2021-03-07] MEDS ORDERED: hydrOXyzine 10 MG/5 ML ORAL SOL PO PRN (15:30)
[2021-03-07] MEDS: LACTOBACILLUS CHEW TABLET PO SCH ×2 (15:33→20:24)
[2021-03-07 19:39] VITALS: BP 125/89
[2021-03-07] MEDS: ATORVASTATIN 40 MG TABLET PO SCH (20:24)
[2021-03-07] MEDS: MELATONIN 5 MG TABLET PO SCH (20:24)
[2021-03-08] MEDS: methylPREDNISolone SOD SUCC 40 MG/ML IVPush SCH ×3 (03:01→21:11)
[2021-03-08] MEDS: PIPERACILLIN/TAZO 3.375 GM in DEXTROSE 5% 50 ML IV SCH ×3 (04:00→17:37)
[2021-03-08] MEDS: ALBUTEROL-IPRATROPIUM MDI INH INH SCH ×4 (04:00→21:32)
[2021-03-08] MEDS: ALBUTEROL HFA 90 MCG/SPRAY INH SCH ×4 (06:01→20:05)
[2021-03-08 06:49] LABS: BASOPHILS % (AUTO) 0 % (0-1); EOSINOPHILS % (AUTO) 0 % (1-7); LYMPHOCYTES % (AUTO) 3 % (22-44); MEAN CORPUSCULAR HEMOGLOBIN 28.6 pg (27.0-34.8); MEAN CORPUSCULAR HGB CONC 32.6 g/dL (32.4-35.8); MEAN PLATELET VOLUME 8.3 fL (7.4-10.4); MONOCYTES % (AUTO) 4 % (2-9); NEUTROPHILS % (AUTO) 93 % (42-75); PLATELET COUNT 294 x10^3/uL (130-400); RED BLOOD COUNT 3.81 x10^6/uL (3.82-5.3); RED CELL DISTRIBUTION WIDTH 14.6 % (9.6-15.2)
[2021-03-08 06:51] LABS: ANION GAP 0 mmol/L (5-15); CHLORIDE 96 mmol/L (98-107); CREATININE 0.53 mg/dL (0.55-1.02)
[2021-03-08 07:43] VITALS: BP 120/78
[2021-03-08] MEDS ORDERED: PHARMACY INSTRUCTION MC PRN (08:00)
[2021-03-08] MEDS: LACTOBACILLUS CHEW TABLET PO SCH ×6 (09:00→20:58)
[2021-03-08] MEDS: FLUTICASONE FUROATE 200MCG/INH INH SCH (09:03)
[2021-03-08] MEDS: DIVALPROEX 250 MG TABLET.DR PO SCH ×3 (09:31→20:04)
[2021-03-08] MEDS: FUROSEMIDE 40 MG TABLET PO SCH (09:31)
[2021-03-08] MEDS: ARIPIPRAZOLE 10 MG TABLET PO SCH (09:31)
[2021-03-08] MEDS: LORazepam 0.5MG TABLET PO PRN ×2 (10:27→20:04)
[2021-03-08 19:32] VITALS: BP 136/91
[2021-03-08] MEDS: MELATONIN 5 MG TABLET PO SCH (20:04)
[2021-03-08] MEDS: ATORVASTATIN 40 MG TABLET PO SCH (20:04)
[2021-03-09] MEDS: ALBUTEROL-IPRATROPIUM MDI INH INH SCH ×2 (03:41→07:51)
[2021-03-09] MEDS: ALBUTEROL HFA 90 MCG/SPRAY INH SCH ×2 (05:55→11:17)
[2021-03-09 07:24] VITALS: BP 137/82
[2021-03-09] MEDS: FUROSEMIDE 40 MG TABLET PO SCH (07:48)
[2021-03-09] MEDS: LACTOBACILLUS CHEW TABLET PO SCH ×2 (07:48→09:00)
[2021-03-09] MEDS: ARIPIPRAZOLE 10 MG TABLET PO SCH (07:48)
[2021-03-09] MEDS: LORazepam 0.5MG TABLET PO PRN (07:48)
[2021-03-09] MEDS: DIVALPROEX 250 MG TABLET.DR PO SCH (07:48)
[2021-03-09] MEDS: FLUTICASONE FUROATE 200MCG/INH INH SCH (07:51)
[2021-03-09] MEDS ORDERED: ACID1TAB7 PO (12:53)
[2021-03-09] MEDS ORDERED: PRED10TA PO (12:53)
== END 2021-03-09 15:30 | disposition home or self-care (01) | DRG 885 ==
LOC: 3E 16:20
PROVIDERS: ADMIT Psychiatry & Neurology Psychosomatic Medicine; ATTEND Psychiatry & Neurology Psychosomatic Medicine
DX: F31.30 Bipolar disorder, current episode depressed, mild or moderate severity, unspecified (principal); J44.1 Chronic obstructive pulmonary disease with (acute) exacerbation; J18.9 Pneumonia, unspecified organism; J96.21 Acute and chronic respiratory failure with hypoxia; E87.1 Hypo-osmolality and hyponatremia; R45.851 Suicidal ideations; J44.0 Chronic obstructive pulmonary disease with (acute) lower respiratory infection; E78.5 Hyperlipidemia, unspecified; F41.0 Panic disorder [episodic paroxysmal anxiety]; F41.1 Generalized anxiety disorder; G47.00 Insomnia, unspecified; G47.30 Sleep apnea, unspecified; R00.0 Tachycardia, unspecified; I10 Essential (primary) hypertension; F15.10 Other stimulant abuse, uncomplicated; Z79.899 Other long term (current) drug therapy
CPT/HCPCS: 36415; J7613; J7626; 71045; 71046; 80048; 80053; 80061; 80307; 81003; 84132; 84439; 84443; 84484; 85025; 85379; 93005; 94640; 96374; 99283; J2543; J2060; J2920; J7512; Q0177

== ENCOUNTER 2021-03-09 23:18 | Emergency (ER) | payer MEDICARE, MEDICAID ==
[~2021-03-09] VITALS: Ht 160 cm; Wt 50.0 kg
[~2021-03-09 23:18] MED LIST changes: +ACID1TAB7 PO; +ARIP10TA33 PO; +DIVA-59 PO; +FURO40TA6 PO; +MELA5TAB14 PO; +PRED10TA PO
[2021-03-09] MEDS ORDERED: LORazepam 2 MG/ML, 1ML IVPush ONE (23:30)
[2021-03-09] MEDS ORDERED: LORazepam 2 MG/ML, 1ML ONE (23:46)
--- NOTE | 2021-03-10 00:28 | NUR ---
WITH RE-ASSESSMENT PATIENT NOW "WAY LESS ANXIOUS" HOWEVER HR REMAINS 130. ERP MADE AWARE. HE BELIEVE HR WILL SELF RESOLVES ALBUTEROL WEARS OFF PATIENT PROVIDED WITH FOOD/WATER/BLANKET UPDATED ON ESTIMATED POC
[2021-03-10 02:41] VITALS: BP 118/78
--- NOTE | 2021-03-10 02:43 | NUR ---
Patient/Caregiver given discharge instructions and they have confirmed that they understand the instructions. Patient ambulatory with steady gait. NAD, all questions answered appropriately, denies additional needs at this time. No personal belongings left in room after discharge. PROVIDED [employer] HOME FOR SAFE DC.
== END 2021-03-10 02:44 | disposition home or self-care (01) ==
LOC: ED 23:45
DX: F41.1 Generalized anxiety disorder (principal); R00.0 Tachycardia, unspecified
CPT/HCPCS: 96374; 99283; J2060